=== PATIENT | female | born 1995 | race Caucasian/White ===

== ENCOUNTER 2024-08-22 09:15 | Emergency (ER) | payer BC, MEDICAID ==
[~2024-08-22] VITALS: Ht 167.6 cm; Wt 100.6 kg
[2024-08-22] MEDS ORDERED: PARO20TA3 (09:26)
[2024-08-22 13:28] LABS: BASO # 0.1 10^3/uL (0.0-0.2); BASO % 0.8 % (0.0-1.0); EOS # 0.5 10^3/uL (0.0-0.5); EOS % 3.5 % (0.0-3.0); HEMATOCRIT 42.1 % (36.0-47.0); HEMOGLOBIN 13.8 g/dl (12.0-15.5); LYMPH # 5.6 10^3/uL (1.5-5.0); LYMPH % 40.1 % (24.0-44.0); MEAN CORPUSCULAR HEMOGLOBIN 27.8 pg (27.0-33.0); MEAN CORPUSCULAR HGB CONC 32.8 g/dl (32.0-36.5); MEAN CORPUSCULAR VOLUME 84.9 fl (80.0-96.0); MONO % 7.4 % (2.0-8.0); NEUTROPHILS # 6.7 10^3/uL (1.5-8.5); NEUTROPHILS % 47.9 % (36.0-66.0); PLATELET COUNT, AUTOMATED 589 10^3/uL (150-450); RED BLOOD COUNT 4.96 10^6/uL (4.00-5.40)
[2024-08-22 13:48] LABS: HCG, SERUM QUALITATIVE NEGATIVE (NEGATIVE)
[2024-08-22 14:22] VITALS: BP 120/65; TEMP 97; O2SAT 100
== END 2024-08-22 14:24 | disposition home or self-care (01) ==
LOC: M ED 09:15
DX: R60.0 Localized edema (principal); J45.909 Unspecified asthma, uncomplicated; K21.9 Gastro-esophageal reflux disease without esophagitis; M79.7 Fibromyalgia; D75.839 Thrombocytosis, unspecified; F17.210 Nicotine dependence, cigarettes, uncomplicated; F43.10 Post-traumatic stress disorder, unspecified; Z88.0 Allergy status to penicillin; Z79.899 Other long term (current) drug therapy

== ENCOUNTER → 2024-09-03 | Outpatient (REF) | payer BC ==
[~2024-09-03] MED LIST: PARO20TA3
[2024-09-03 14:43] LABS: HEMATOCRIT 41.9 % (36.0-47.0); HEMOGLOBIN 13.3 g/dl (12.0-15.5); MEAN CORPUSCULAR HEMOGLOBIN 26.9 pg (27.0-33.0); MEAN CORPUSCULAR HGB CONC 31.7 g/dl (32.0-36.5); MEAN CORPUSCULAR VOLUME 84.8 fl (80.0-96.0); PLATELET COUNT, AUTOMATED 669 10^3/uL (150-450); RED BLOOD COUNT 4.94 10^6/uL (4.00-5.40); WHITE BLOOD COUNT 12.1 10^3/uL (4.0-10.0)
[2024-09-03 14:49] LABS: ERYTHROCYTE SEDIMENTATION RATE 27 mm/hr (0-20)
[2024-09-03 15:06] LABS: LIPASE 37 U/L (12-53)
[2024-09-03 15:07] LABS: AMYLASE 73 U/L (30-118)
[2024-09-03 15:08] LABS: C REACTIVE PROTEIN QUANTITATIV 0.62 MG/DL (<1.0)
[2024-09-03 15:09] LABS: ALBUMIN 3.5 G/DL (3.2-5.2); ALKALINE PHOSPHATASE 100 U/L (35-104); ALT/SGPT 15 U/L (7.0-40); AST/SGOT 13 U/L (<34); BILIRUBIN,TOTAL 0.3 MG/DL (0.3-1.2); BLOOD UREA NITROGEN 9 MG/DL (9-23); CALCIUM LEVEL 8.8 MG/DL (8.5-10.1); CARBON DIOXIDE LEVEL 22 MMOL/L (20-31); CHLORIDE LEVEL 112 MMOL/L (98-107); CHOLESTEROL LEVEL 170 MG/DL (<200); CHOLESTEROL RISK RATIO 6.31 (<5); CREATININE FOR GFR 0.63 MG/DL (0.55-1.30); GLOMERULAR FILTRATION RATE > 60.0 (>60); GLUCOSE, FASTING 87 MG/DL (60-100); HDL CHOLESTEROL 26.9 MG/DL (>40); LDL CHOLESTEROL 110.7 MG/DL (<100); NON-HDL-C 143.1 MG/DL; POTASSIUM SERUM 5.1 MMOL/L (3.5-5.1); RHEUMATOID FACTOR QUANT 8.2 IU/ML (<14); SODIUM LEVEL 143 MMOL/L (136-145); THYROID STIMULATING HORMONE 5.062 uIU/ML (0.55-4.78); TOTAL PROTEIN 6.3 G/DL (5.7-8.2); TRIGLYCERIDES LEVEL 162 MG/DL (<150)
[2024-09-03 15:10] LABS: TOTAL 25(OH) VITAMIN D 16.3 NG/ML (20.0-100.0)
[2024-09-03 15:18] LABS: HEMOGLOBIN A1c 5.1 % (4.0-6.0)
[2024-09-05 17:38] LABS: SSA SJOGRENS A <1.0 NEG AI (<1.0 NEG); SSB SJOGRENS B <1.0 NEG AI (<1.0 NEG)
[2024-09-05 18:02] LABS: ANA PATTERN Nuclear, Homogeneous (NEGATIVE); ANA SCREEN, IFA POSITIVE (NEGATIVE); ANA TITER 1:40 titer (<1:40)
== END ==
LOC: M LAB REF 12:31
PROVIDERS: ATTEND Student in an Organized Health Care Education/Training Program
DX: Z00.01 Encounter for general adult medical examination with abnormal findings (principal); M79.7 Fibromyalgia

== ENCOUNTER → 2024-09-21 | Outpatient (CLI) | payer BC ==
[~2024-09-21] MED LIST changes: +CEPH500C PO
== END ==
LOC: M RAD 14:11
PROVIDERS: ATTEND Student in an Organized Health Care Education/Training Program
DX: M25.571 Pain in right ankle and joints of right foot (principal); M25.561 Pain in right knee

== ENCOUNTER → 2025-05-22 | Outpatient (REF) | payer BC ==
[~2025-05-22] MED LIST changes: +FERR325T3 PO
[2025-05-22 17:03] LABS: APPEARANCE, URINE HAZY (CLEAR); BACTERIA, URINE AUTO 1+ (NEGATIVE); BILIRUBIN, URINE AUTO NEGATIVE (NEGATIVE); BLOOD, URINE BLOOD 1+ (NEGATIVE); GLUCOSE, URINE (UA) AUTO NEGATIVE (NEGATIVE); KETONE, URINE AUTO NEGATIVE (NEGATIVE); LEUKOCYTE ESTERASE, URINE AUTO TRACE (NEGATIVE); MUCUS, URINE SMALL (NEGATIVE); NITRITE, URINE AUTO NEGATIVE (NEGATIVE); PROTEIN, URINE AUTO NEGATIVE (NEGATIVE); RBC, URINE AUTO 2 /HPF (0-3); SPECIFIC GRAVITY URINE AUTO 1.017 (1.002-1.035); SQUAMOUS EPITHELIAL CELL UR AU 6 /HPF (0-6); UROBILINOGEN, URINE AUTO 0.2 mg/dL (0.0-2.0); WBC, URINE AUTO 2 /HPF (0-3)
[2025-05-22 17:12] LABS: TOTAL PROTEIN,RANDOM URINE 12.5 MG/DL (0.0-14.0)
[2025-05-22 18:19] LABS: ALT/SGPT 21 U/L (7.0-40); AST/SGOT 17 U/L (<34); C REACTIVE PROTEIN QUANTITATIV 0.59 MG/DL (<1.0); CALCIUM LEVEL 9.0 MG/DL (8.5-10.1); CARBON DIOXIDE LEVEL 27 MMOL/L (20-31); CHLORIDE LEVEL 111 MMOL/L (98-107); CREATININE FOR GFR 0.65 MG/DL (0.55-1.30); GLOMERULAR FILTRATION RATE > 90.0 (>60); POTASSIUM SERUM 4.9 MMOL/L (3.5-5.1); SODIUM LEVEL 144 MMOL/L (136-145)
[2025-05-22 18:21] LABS: COMPLEMENT C4 40.1 MG/DL (12-36)
[2025-05-22 18:26] LABS: BASO # 0.1 10^3/uL (0.0-0.2); BASO % 0.7 % (0.0-1.0); EOS # 0.5 10^3/uL (0.0-0.5); EOS % 3.4 % (0.0-3.0); LYMPH # 5.6 10^3/uL (1.5-5.0); LYMPH % 36.8 % (24.0-44.0); MONO # 1.0 10^3/uL (0.0-0.8); MONO % 6.7 % (2.0-8.0); NEUTROPHILS # 7.9 10^3/uL (1.5-8.5); NEUTROPHILS % 52.0 % (36.0-66.0); PLATELET COUNT, AUTOMATED 702 10^3/uL (150-450)
[2025-05-29 10:53] LABS: PTT-LA 46 sec (<=40)
== END ==
LOC: M SFHCRHEU 13:52
PROVIDERS: ATTEND Internal Medicine Rheumatology
DX: R76.89 Other specified abnormal immunological findings in serum (principal)